=== PATIENT | male | born 1995 | race Caucasian/White ===

== ENCOUNTER 2025-05-07 22:19 | Emergency (ER) | payer OTHER ==
[~2025-05-07] VITALS: Ht 172.7 cm; Wt 93.2 kg
[2025-05-08 00:20] VITALS: BP 122/74; TEMP 97.9; O2SAT 99
[2025-05-08] MEDS ORDERED: CIPR7.5D2 AS (01:58)
[2025-05-08] MEDS ORDERED: AMOX500C PO (01:58)
[2025-05-08] MEDS: AMOXICILLIN 500 MG CAP PO ONE (02:08)
[2025-05-08] MEDS: IBUPROFEN 600 MG TAB PO ONE (02:08)
== END 2025-05-08 02:22 | disposition home or self-care (01) ==
LOC: M ED 22:19
DX: H66.012 Acute suppurative otitis media with spontaneous rupture of ear drum, left ear (principal); Z79.2 Long term (current) use of antibiotics